=== PATIENT | male | born 1985 ===

== ENCOUNTER 2025-01-17 05:04 | Emergency (ER) | payer BC, MEDICAID, SELFPAY ==
--- OUTSIDE RECORDS SUMMARY | 2022-11-15 06:00 | XMS_ITS | Continuity of Care Document ---
Author Organization [facility] Address [id number][place] [address] Phone Care Team Providers Care Attic Blower Name Role Phone Climer Nadine KHOURY Unavailable [...] Providers Copied on Encounter OFFICE/OUTPA TIENT VISIT, [facility], [id number] [place], [place], [address], [place] tel:[phone] [facility] L ear pain/swell ing/draina ge (chief complaint) Acute swimmer's ear of left side 3 Analy Mccoy. [address], [place], [address] , [place]. tel:[phone] Referring Provider: Nadine Beckford, [address] [facility], [place], [address] . tel:[phone] [facility], [id number], [address], [place] tel:[phone] Family Medicine No Information 3 Rula Lira. [address], [place], [address] , [place]. tel:[phone] OFFICE/OUTPA TIENT VISIT, [facility], [id number] [address], [place] tel:[phone] Family Medicine F1 establish care (chief complaint) Diabetes (chief complaint) Hypertensi on (chief complaint) obesity (chief complaint) Encounter for screening for cardiovascular disordersType 2 diabetes mellitus without complicationsEssenti al (primary) hypertensionMorbid (severe) obesity due to excess calories 3 Rula Lira. [address] [place], [place], [address] , [place]. tel:[phone] Referring Provider: Soraya Dallas, [address] [place], [address] . tel:[phone] Family History Family Member Type Diagnosis Age At Onset No Information Payers Payer name Insurance type Covered democrat ID Torsten Rod (s) [facility] [id number] Social History Type Description Quantity Date Captured [...] Mental Status Date Cognitive Assessment Orientation - [place] ed to time, place, person, situation. Patient Care Teams Name Effective Dates (start - stop) Status Members No Information
[2025-01-17 05:11] VITALS: BP 179/95; PULSE 76; RESP 18; TEMP 36.4; O2SAT 96; BMI 52.9
[2025-01-17 05:26] VITALS: RESP 16
[2025-01-17] MEDS: oxyCODONE-APAP 10-325 mg Tablet 1 TAB PO (05:26)
[2025-01-17 05:29] VITALS: BP 176/95; PULSE 73; O2SAT 96
--- NOTE | 2025-01-17 05:29 | W.ED.DENTAL ---
HPI - Dental/Oral General: Chief complaint: Dental/Oral Stated complaint: Dental pain Time Seen by Provider: 01/17/25 05:11 History of Present Illness: 39 yo M presents with severe dental pain that persisted through the night for the first time. Pain involves upper and lower teeth, described as tooth 'open', with suspected fractured teeth; pt likens it to dry socket. Rinsing/dousing with water briefly reduces pain but it returns. Pt has not seen a dentist for ~4 years. Home attempts included cleaning, packing, and topical Kank-A without relief. Difficulty finding a dentist who accepts Medicaid ([employer]). Prefers Rx sent to [facility]. Denies known triggers beyond dental issues. No mention of fever, facial swelling, trismus, dyspnea, or dysphagia in history provided. Related Data Previous Rx's ?Medication ?Instructions ?Recorded amoxicillin 875 mg-potassium 1 tab PO Q12H #14 tabs 01/17/25 clavulanate 125 mg tablet oxycodone-acetaminophen 5 mg-325 1 tab PO TID PRN pain #20 tabs 01/17/25 mg tablet (Percocet) Physical Exam Const: COMMON NORMALS: no acute distress, patient oriented x3 and alert HENMT: OTHER: Multiple fractured teeth, poor dentition throughout. No obvious abscess. Minimal incision and drainage documented. No sublingual swelling. Clear phonation. No clinical concern for Dejuan's angina noted. Eye: COMMON NORMALS: Equal, round and reactive pupils present, EOMs intact bilaterally and no scleral icterus PUPIL: Yes Equal, round and reactive pupils present Resp: COMMON NORMALS: normal respiratory effort and No retractions Cardio: COMMON NORMALS: regular rate, regular rhythm and No murmurs present (Cardio) RATE: regular rate RHYTHM: regular rhythm GI: COMMON NORMALS: Normal to inspection, nondistended, normoactive bowel sounds present, Soft to palpation and non-tender PALPATION: Yes Soft to palpation Neuro: COMMON NORMALS: patient oriented x3 SENSORIUM/ORIENTATION: Yes alert Skin: COMMON NORMALS: no rashes or lesions noted GENERAL SKIN EXAM: no rashes or lesions noted Course Vital Signs: Vital signs: Vital Signs Temperature 97.6 F 01/17/25 05:11 Pulse Rate 76 01/17/25 05:11 Respiratory Rate 16 01/17/25 05:26 Blood Pressure 179/95 01/17/25 05:11 Pulse Oximetry 96 01/17/25 05:11 MDM - Dental/Oral Medical Decision Making 39 yo M with severe dental pain overnight, involving upper and lower teeth. Brief relief with water rinses. No recent dental care; home topical agents ineffective. Allergic to strawberry. Difficulty finding dentist accepting Medicaid; requests Rx [facility]. PE: multiple fractured teeth, poor dentition, no obvious abscess, minimal incision and drainage noted, no sublingual swelling, clear phonation; no concern for Dejuan's angina. Dental pain likely from fractured teeth and dental disease; abscess not evident on exam. Deep neck space infection unlikely given no sublingual swelling, clear phonation, and no clinical concern for Dejuan's angina. Augmentin and percocet; Rx to [facility]. Dental extraction/definitive dental care advised; no labs or imaging ordered. . No radiology studies performed this visit Discharge Plan Discharge Patient Disposition: Home Clinical Impression: Infection of tooth Condition: Stable Prescriptions: New amoxicillin-pot clavulanate 875-125 mg tablet 1 tab PO Q12H Qty: 14 0RF oxycodone-acetaminophen [Percocet] 5-325 mg tablet 1 tab PO TID PRN (Reason: pain) Qty: 20 0RF Discharge Orders: Discharge ED (Routine); Ordered 01/17/25 Ordered By: Kevin Johnson Referrals: León Small MD [Primary Care Provider, Family Practice] Patient Instructions: Dental Abscess (ED), Patient Portal & Eliot Instructions Activity Restrictions/Additional Instructions: Please do everything in your power to find a dentist and see him as soon as possible for definitive management of your tooth infections Print Language: Vietnamese Coding Level of Care Code ED Procurement Assistant for Anca Parson
== END 2025-01-17 05:31 | disposition home or self-care (01) ==
PROVIDERS: Emergency Provider Student in an Organized Health Care Education/Training Program; PCP Family Medicine
DX: K04.7 Periapical abscess without sinus (principal)
CPT/HCPCS: 99283; J9999

== ENCOUNTER 2025-01-21 00:57 | Emergency (ER) | payer BC, MEDICAID, SELFPAY ==
--- OUTSIDE RECORDS SUMMARY | 2022-11-15 06:00 | XMS_ITS | Continuity of Care Document ---
Author Organization [facility] Address [id number] [address] Phone Care Team Providers Care Raisin Washer Name Role Phone Climer Nadine KHOURY Unavailable Unavailable Allergies, Adverse Reactions, Alerts Substance Reaction Status Criticality No Known Allergies Active No Inform ation Medications Medication Instructions Dosage Effective Dates (start - stop) Status Comments metformin 500 mg tablet take 1 tablet by oral route 2 times every day with morning and evening meals 500 MG - Active lisinopril 5 mg tablet take 1 tablet by oral route every day 5 MG - Active glipizide 10 mg tablet take 1 tablet by oral route every day before a meal 10 MG - Active amlodipine 5 mg tablet take 1 tablet by oral route every day 5 MG - Active Ciprodex 0.3 %-0.1 % ear drops,suspension instill 4 drop by otic route 2 times every day for 7 days into affected ear(s) for left ear - No Longer Active Procedures Procedure Date SBIRT - AUDIT/DAST, 15-30 MIN 3 OFFICE/OUTPATIENT VISIT, EST SBIRT - AUDIT/DAST, 15-30 MIN 3 OFFICE/OUTPATIENT VISIT, NEW COMPREHEN METABOLIC PANEL LIPID PANEL GLYCOSYLATED HEMOGLOBIN TEST HG A1C>EQUAL 7.0%<8.0% ROUTINE VENIPUNCTURE URINALYSIS AUTO W/O SCOPE MICROALBUMIN SEMIQUANT ASSAY OF URINE CREATININE Advance Directives Directive Yes / No Effective Date File Name No Information Encounters Encounter Description Practice Location Reason(s) For Visit Diagnoses Date Provider Providers Copied on Encounter OFFICE/OUTPA TIENT VISIT, [facility], [id number] [place], [place], [address], [place] tel:[phone] [facility] L ear pain/swell ing/draina ge (chief complaint) Acute swimmer's ear of left side 3 Analy Mccoy. [address], [place], [address] , [place]. tel:[phone] Referring Provider: Nadine Beckford, [address] [facility], [place], [address] . tel:[phone] [facility], [id number], [address], [place] tel:[phone] Family Medicine No Information 3 Rula Lira. [address], [place], [address] , [place]. tel:[phone] OFFICE/OUTPA TIENT VISIT, [facility], [id number], [address], [place] tel:[phone] Family Medicine F1 establish care (chief complaint) Diabetes (chief complaint) Hypertensi on (chief complaint) obesity (chief complaint) Encounter for screening for cardiovascular disordersType 2 diabetes mellitus without complicationsEssenti al (primary) hypertensionMorbid (severe) obesity due to excess calories 3 Rula Lira. [address], [place], [address] , [place]. tel:[phone] Referring Provider: Soraya Dallas, [address] [place], [address] . tel:[phone] Family History Family Member Type Diagnosis Age At Onset No Information Payers Payer name Insurance type Covered libertarian ID Torsten Rod (s) [facility] [id number] Social History Type Description Quantity Date Captured Comments Alcohol Use Details Unknown Caffeine Use Details Unknown Tobacco Use Status Heavy cigarette smok er (20-39 cigs/day) Smoking Status Heavy tobacco smoker Smoking Tobacco Use Details Cigarette: No Details Available Cigarette: 1 Packs per day Sex Male Sexual Orientation Heterosexual Gender Identity Male Vital Signs Date / Time: Height Weight BMI Pulse Rate Blood Pressure Temperature Respiratory Rate Body Surface Area Head Circumference Head Circ. Percentile Wt./Ramakrishna. Percentile BMI percentile Pulse Ox Inhaled Ox 11:07 AM 72.00 in 204.706 kg (451.30 lbs) 61.2 1 kg/m eter (2) 96 /min 128/70 mm[Hg] 98.20 F 18 /min 3.22 meter(2) 96 % Chief Complaint And Reason For Visit From encounter dated '11/15/2022 11:00'. L ear pain/swelling/drainage (chief complaint) Reason For Referral Reason For Referral No Information Plan Of Treatment Date Type Action Status Goal Tobacco cessation counseling completed Goal Tobacco cessation counseling completed Goal Dietary management education , guidance, and counseling completed History Of Present Illness Encounter Date Complaint History Of Prese nt Illness Comments: Pt sta gilmar it was ongoing for about a week, improved and then came back yesterday. Has tried peroxide and hurts to wear ear bud. No sore throat, cough or fever. L ear pain/swelling/drainage obesity Risk factors inc lude high fat diet, sedentary lifestyle and socioeconomic status. Pertinent negatives include acne, anorexia, anxiety, depression, delayed development, facial plethora, fatigue, headache, hirsutism, hoarseness, paresthesias or striae. Hypertension Risk factors inc lude male gender. Pertinent negatives include chest pain, claudication, confusion, diaphoresis, dyspnea, fatigue, headache, irregular heartbeat/palpitations, tinnitus, transient weakness, tremor and visual disturbances. Diabetes Managing with: O ral medications. Pertinent negatives include blurred vision, burning of extremities, chest pain, constant hunger, diarrhea, dyspnea, foot ulcers, frequent infections and urinary frequency. establish care Patient presents to the clinic to establish care. He is a current [facility] patient . He is needing to establish care and get medication refills. Functional Status Date Functional Assessmen t Pain Score 8/10 Instructions Date Instruction Additional Infor mation Use ear drops as dir ected.Avoid getting water in ear.Ibuprofen for pain.Recheck in 3 days if not greatly improved. Related to Acute swimmer's ear of left side Will check labs and call with results and further plan of careAdvised a healthy low carb diet and routine exerciseDiscussed importance of diabetes control and risk of uncontrolled DMFU in 3 months for a recheck Related to Type 2 diabetes mellitus without complications Will check labs and call with results and further plan of careAdvised a healthy low carb diet and routine exerciseDiscussed importance of diabetes control and risk of uncontrolled DMFU in 3 months for a recheck Related to Essential (primary) hypertension Will check labs and call with results and further plan of careAdvised a healthy low carb diet / low saturated fat and routine exerciseDiscussed importance of diabetes control and risk of uncontrolled DMFU in 3 months for a recheck Related to Encounter for screening for cardiovascular disorders Will check labs and call with results and further plan of careAdvised a healthy low carb diet and routine exerciseDiscussed importance of diabetes control and risk of uncontrolled DMFU in 3 months for a recheck Related to Morbid (severe) obesity due to excess calories Dietary management e ducation, guidance, and counseling Related to Type 2 diabetes mellitus without complications Hypertension education Related t o Type 2 diabetes mellitus without complications Assessments Type Assessment Date assessment Acute swimmer's ear of left side Mental Status Date Cognitive Assessment Orientation - [place] ed to time, place, person, situation. Patient Care Teams Name Effective Dates (start - stop) Status Members No Information
[2025-01-21 01:11] VITALS: BP 154/100; PULSE 80; RESP 18; TEMP 36.4; O2SAT 90; BMI 52.6
--- NOTE | 2025-01-21 01:15 | ED_ITS ---
HPI - Dental/Oral General: Stated complaint: RT side top and bottom teeth Time Seen by Provider: 01/21/25 00:59 Source: patient Mode of arrival: ambulatory Limitations: no limitations History of Present Illness: 39-year-old male states he has right iván ed dental pain going on the right upper molar. States that he was seen here started on amoxicillin and is continue with pain. He denies any worsening from factors states he went to the dentist but would not pull it due to his diabetes he has appoint with his PCP tomorrow Related Data Previous Rx's ?Medication ?Instructions ?Recorded amoxicillin 875 mg-potassium 1 tab PO Q12H #14 tabs clavulanate 125 mg tablet oxycodone-acetaminophen 5 mg-325 1 tab PO TID PRN pain #20 tabs 01/17/25 mg tablet (Percocet) Review of Systems ENMT: Reports: dental pain Physical Exam Const: COMMON NORMALS: no acute distress, patient oriented x3 and healthy appearing HENMT: COMMON NORMALS: normocephalic and atraumatic HEAD & SCALP: normocephalic and atraumatic OTHER: Multiple missing teeth and poor dentition some tenderness to right upper molar no abscess no trismus Neck/C-Spine: COMMON NORMALS: full ROM and supple Chest: COMMONS NORMALS: normal inspection of the chest Resp: COMMON NORMALS: normal respiratory effort Cardio: COMMON NORMALS: regular rate RATE: regular rate Extremity: COMMON NORMALS: normal to inspection Neuro: COMMON NORMALS: patient oriented x3, moves all extremities and no focal motor deficits Psych: COMMON NORMALS: mental status grossly normal, Normal thought process present and cooperative THOUGHT PROCESS: Normal thought process present Skin: COMMON NORMALS: no rashes or lesions noted and no wounds GENERAL SKIN EXAM: no rashes or lesions noted MDM - Dental/Oral Medical Decision Making Patient presents for dental pain he has no trismus no abscess that given hydrocodone here. He is to continue his amoxicillin and follow-up with dentist return if worsening. He states his appointments PCP is to follow-up with him as well. No radiology studies performed this visit Discharge Plan Discharge Patient Disposition: Home Clinical Impression: Pain, dental Condition: Stable Prescriptions: No Action amoxicillin-pot clavulanate 875-125 mg tablet 1 tab PO Q12H Qty: 14 0RF oxycodone-acetaminophen [Percocet] 5-325 mg tablet 1 tab PO TID PRN (Reason: pain) Qty: 20 0RF Discharge Orders: Discharge ED (Routine); Ordered 01/21/25 Ordered By: Srinivas Maddox Referrals: León Small MD [Primary Care Provider, Family Practice] Discharge Diet: Advance as tolerated Discharge Activity: Resume usual activity Patient Instructions: Toothache (ED) Print Language: Danish Coding Level of Care Code ED Mechanical Design Technician for Anca Parson
[2025-01-21] MEDS: HYDROcodone-acetaminophen 5-325 mg Tablet 1 TAB PO (01:17)
== END 2025-01-21 01:20 | disposition home or self-care (01) ==
PROVIDERS: Emergency Provider Emergency Medicine; PCP Family Medicine
DX: K08.89 Other specified disorders of teeth and supporting structures (principal)
CPT/HCPCS: 99283; J9999

== ENCOUNTER 2025-04-18 03:26 | Emergency (ER) | payer SELFPAY ==
[2025-04-18 03:27] VITALS: BP 139/84; PULSE 96; RESP 16; TEMP 36.8; O2SAT 89; BMI 51.3
[2025-04-18 03:35] VITALS: O2SAT 93
--- NOTE | 2025-04-18 03:40 | XRR_ITS ---
PROCEDURE INFORMATION: Exam: XR Chest Exam date and time: 04/18/2025 3:40 AM Age: 39 years old Clinical indication: Cough and shortness of breath; Cough with SOB TECHNIQUE: Imaging protocol: Radiologic exam of the chest. Views: 1 view. COMPARISON: No relevant prior studies available. FINDINGS: Lungs: Bilateral lower lobe airspace disease, suspicious for pneumonia. Pleural spaces: No significant pleural effusion or pneumothorax identified. Heart/Mediastinum: Unremarkable. No cardiomegaly. Bones/joints: Unremarkable. XR/XR chest 1V portable [id number] IMPRESSION: Bilateral lower lobe airspace disease, suspicious for pneumonia.
--- NOTE | 2025-04-18 03:41 | W.ED.URI ---
HPI - URI/Sore Throat General: Chief Complaint: Upper Respiratory Infection Stated Complaint: SOB pain all over cough temp Time Seen by Provider: 04/18/25 03:36 History of Present Illness: Patient is a 39-year-old male with past medical history of tobacco use, diabetes who presents to the ED with flulike symptoms. Has been feeling fatigued and had a increased dry cough over the last 4 days that seemingly worsened tonight and had mucus production with it. He has had episodes of diaphoresis but no documented fever, decreased p.o. intake but no abdominal pain, has seemingly been urinating more often but no dysuria or hematuria. States his sugars normally run between 2-300. Actively smoking. Associated symptoms: Deny chills, chest pain, fever(s) or headache(s) Related Data Previous Rx's ?Medication ?Instructions ?Recorded amoxicillin 875 mg-potassium 1 tab PO Q12H #14 tabs 01/17/25 clavulanate 125 mg tablet oxycodone-acetaminophen 5 mg-325 1 tab PO TID PRN pain #20 tabs 01/17/25 mg tablet (Percocet) amoxicillin 875 mg-potassium 1 tab PO BID #14 tabs 04/18/25 clavulanate 125 mg tablet [id number]-CZ-atcequgoeaj 10 5 ml PO Q8H PRN cough #474 mL 04/18/25 mg-28 mg-388 mg/5 mL oral liquid (Tusslin) Allergies Allergy/AdvReac Type Severity Reaction Status Date / Time No Known Allergies Allergy Verified 04/18/25 03:35 Review of Systems General: Reports: 10 or more systems reviewed and unremarkable except in HPI and below Const: Reports: body aches and fatigue; Denies: fever(s) or chills Eyes: Denies: change in vision or eye discharge Card: Denies: chest pain, palpitations or swelling of feet/ankles Resp: Reports: productive cough : Reports: urinary frequency Musc: Denies: neck pain or back pain Skin/Breast: Denies: rash or jaundice Neuro: Denies: headache(s), numbness in extremities or weakness in extremities [place]/Lymph: Denies: easy bruising or easy bleeding Physical Exam Narrative: EXAM NARRATIVE: Obese, fatigued but nontoxic, afebrile, vital signs stable on arrival, no acute distress. Saturating in low 90s on room air but breathing comfortably, speaking in full sentences without getting short of breath, no accessory muscle usage, frequent coughing on exam, distant breath sounds but nothing adventitious, no signs of respiratory distress. Abdomen protuberant but soft and nontender, bowel sounds intact, no CVA tenderness. Appears well-hydrated. Normal sinus rhythm with no murmurs, no leg swelling. Course Vital Signs: Vital signs: Vital Signs Temperature 98.2 F 04/18/25 03:27 Pulse Rate 89 04/18/25 04:27 Respiratory Rate 18 04/18/25 04:27 Blood Pressure 103/65 04/18/25 04:27 Pulse Oximetry 93 04/18/25 03:35 Oxygen Delivery Me thod Room Air 04/18/25 03:27 MDM - URI/Sore Throat Medical Decision Making -ddx: URI, COPD exacerbation, bronchitis, pneumonia, UTI - Patient with seeming subacute worsening of his flulike symptoms, now with mucus production and more fatigue, will provide shot of Toradol, get chest x-ray, viral swab and UA for his increased urinary frequency. - UA with some glucosuria but no signs of infection, feeling improved mildly after Toradol, on chest x-ray had a bilateral lower lobe pneumonia, his respiratory status remained unchanged and he was able to be discharged on a 7-day course of Augmentin, worsening return precautions given, advised to follow-up with PCP, discharged with mother at bedside. Lab Data Radiology Impressions Chest X-Ray 04/18/25 03:40 IMPRESSION: Bilateral lower lobe airspace disease, suspicious for pneumonia. Laboratory Results Urine Color Yellow (Yellow) 04/18/25 03:55 Urine Appearance Clear (CLEAR) 04/18/25 03:55 Urine pH 7.0 (5-7) 04/18/25 03:55 Ur Specific [place] 1.036 (1.005-1.030) H 04/18/25 03:55 Urine Protein Negative (Negative) 04/18/25 03:55 Urine Glucose (UA) 3+ (Normal) H 04/18/25 03:55 Urine Ketones Negative (Negative) 04/18/25 03:55 Urine Blood Negative (Negative) 04/18/25 03:55 Urine Nitrate Negative (Negative) 04/18/25 03:55 Urine Bilirubin Negative (Negative) 04/18/25 03:55 Urine Urobilinogen 1.0 mg/dL (Negative) 04/18/25 03:55 Ur Leukocyte Esterase Negative (Negative) 04/18/25 03:55 Urine RBC 0-2 /hpf (0-2) 04/18/25 03:55 Urine WBC 0-5 /hpf (0-5) 04/18/25 03:55 Ur Squamous Epith Cells 0-5 /hpf (0-5) 04/18/25 03:55 Amorphous Sediment Not Reportable 04/18/25 03:55 Urine Bacteria None seen /hpf (NONE) 04/18/25 03:55 Hyaline Casts 0-4 /lpf H 04/18/25 03:55 Influenza A (PCR) Negative (Negative) 04/18/25 03:55 Influenza Type B (PCR) Negative (Negative) 04/18/25 03:55 RSV (PCR) Negative (Negative) 04/18/25 03:55 SARS-CoV-2 (PCR) Negative (Negative) 04/18/25 03:55 All radiology interpretation(s) finalized by discharge EKG Data EKG 1: Interpretation: Normal sinus rhythm at 84 bpm, no axis deviation, no interval prolongation, no ST elevation or depression Discharge Plan Discharge Patient Disposition: Home Clinical Impression: Pneumonia Condition: Stable Prescriptions: New amoxicillin-pot clavulanate 875-125 mg tablet 1 tab PO BID Qty: 14 0RF [place]usslin 10-28-388 mg/5 mL liquid 5 ml PO Q8H PRN (Reason: cough) Qty: 474 0RF No Action amoxicillin-pot clavulanate 875-125 mg tablet 1 tab PO Q12H Qty: 14 0RF oxycodone-acetaminophen [Percocet] 5-325 mg tablet 1 tab PO TID PRN (Reason: pain) Qty: 20 0RF Discharge Orders: Discharge ED (Routine); Ordered 04/18/25 Ordered By: Ervin Agustin Referrals: León Small MD [Primary Care Provider, Family Practice] Discharge Diet: Advance as tolerated Discharge Activity: Increase activity as tolerated Patient Instructions: Opioid Safety, Pain Management, Patient Portal & Eliot Instructions Activity Restrictions/Additional Instructions: You were seen for your cough and shortness of breath, you were evaluated with a viral swab, chest x-ray and urinalysis which found you to have a pneumonia and both lobes of your lower lungs. Due to your tobacco history, you will be placed on a moderate strength antibiotic, take the Augmentin twice a day for a total of 7 days. You have also been written for Tessalon syrup which should help with your cough and congestion. Alternate Tylenol 650 mg and ibuprofen 400 mg every 4 hours as needed for fevers and pain related to coughing. Return to the ED with worsening shortness of breath, oxygen saturations below 88%, inability to eat or drink, continuous vomiting, any other emergent concerns. Print Language: Togolese Coding Level of Care Code ED Electrical Power Engineer for Anca Parson
[2025-04-18 04:03] LABS: Glucose Urine UA 3+ (Normal); Nitrate Urine Negative (Negative)
[2025-04-18 04:08] LABS: Add Urine Microscopic? YES
[2025-04-18 04:24] LABS: Specific Gravity, Urine 1.036 (1.005-1.030)
[2025-04-18 04:27] VITALS: BP 103/65; PULSE 89; RESP 18
[2025-04-18 04:38] LABS: Respiratory Syncytial Virus Ce NEGATIVE (Negative); SARS-CoV-2 PCR NEGATIVE (Negative)
== END 2025-04-18 04:55 | disposition home or self-care (01) ==
PROVIDERS: Emergency Provider Student in an Organized Health Care Education/Training Program; PCP Family Medicine
DX: J18.9 Pneumonia, unspecified organism (principal); Z11.52 Encounter for screening for COVID-19
CPT/HCPCS: 71045; 81001; 87637; 96372; 99284; J1885; J9999